=== PATIENT | female | born 1965 | race Caucasian/White ===

== ENCOUNTER → 2024-05-13 12:21 | Outpatient (REF) | payer OTHER, SELFPAY | LOC: WDC 12:21 | PROVIDERS: ATTENDING PHYSICIAN Internal Medicine | DX: Z12.31 Encounter for screening mammogram for malignant neoplasm of breast (principal) | CPT/HCPCS: 77063; 77067 ==

== ENCOUNTER → 2024-05-21 12:53 | Outpatient (REF) | payer SELFPAY | LOC: RAD 12:53 | PROVIDERS: ATTENDING PHYSICIAN Internal Medicine Critical Care Medicine; FAMILY PHYSICIAN Internal Medicine | DX: I25.10 Atherosclerotic heart disease of native coronary artery without angina pectoris (principal); F17.210 Nicotine dependence, cigarettes, uncomplicated | CPT/HCPCS: 71271; 75571 ==

== ENCOUNTER 2024-07-20 11:45 | Emergency (ER) | payer OTHER, SELFPAY ==
[2024-07-20 11:49] VITALS: BP 145/98
--- NOTE | 2024-07-20 12:27 | ED.GENMED ---
History of Present Illness
General
Chief Complaint: Back Pain
Source: patient
Exam Limitations: none
Time Seen by Provider: 07/20/24 12:26
Nursing documentation reviewed up to this point in time: agreed with
History of Present Illness
History of Present Illness:
59-year-old female with history of headaches, HLD, IBS, anxiety, chronic pain neck and upper back (followed by pain management, cervical injections by Dr. Cunningham 3 weeks ago), 'never in my lower back like it is now,' chronic fatigue, presents
stating 9 days ago developed a little pain across her lower back 'I though I pulled my back.'
8, 7 and 6 days ago pain was severe, stabbing and radiating around to both groin areas. Up all night crying in pain. She felt she had to push on her lower abdomen to get her urine out. Advil and Tylenol did not help.
Went to 6 days ago, told there was blood in her urine, started on Amoxicillin 500 mg BID x 5 days for UTI (culture pending) which she finished yesterday. Also given Medrol dose pack for her back pain. Pain has not improved. She feels bloated.
As of today she states she is only '20% better' and as she is weaning off the steroid she feels symptoms getting worse again.
Denies fever/chills, n/v/d/c. Denies saddle numbness, weakness in legs. Abdomen feels bloated. She feels 'exhausted.'
Past History
Past History
ED Past Medical History: Other (Chronic pain)
ED Past Surgical History: None
Social History
Tobacco: Non-smoker
Alcohol: None
Drug: None
Personal:
Living: with family
Family History
Family History: Unable to obtain
Review of Systems
Review of Systems
Allergies reviewed?: Yes
All Other Systems: ROS reviewed and negative except as documented in HPI and ROS
Constitutional: Reports fatigue; Denies fever
EENT: Denies sore throat
Respiratory: Denies trouble breathing
Cardiac: Denies chest pain
ABD/GI: Reports abdominal pain and nausea; Denies vomiting or diarrhea
: Denies dysuria, frequency or incontinence
Musculoskeletal: Reports neck pain (chronic) and back pain (across lower back radiating to both groin areas and hips); Denies edema
Skin: Reports no symptoms
Neurological: Denies headache, weakness or numbness
Phy Exam
Physical Exam
Physical Exam:
GENERAL: No acute distress. A&Ox3.
CONSTITUTIONAL: Afebrile.
EYES: clear, conjunctivae normal
ENMT: moist mucus membranes, Pharynx nl
RESPIRATORY: Regular respirations, nonlabored, lungs clear.
CARDIOVASCULAR: Regular rate and rhythm, no murmurs, no rubs.
GI: Soft, tender across lower abdomen, more mid to left. Nondistended, normal BS
MUSCULOSKELETAL: Pt gets off and on the stretcher with ease. Tender to palpation across lower back. Twisting side to side and forward flexion aggravates the low back pain. Both hips Moves with ease. Well perfused.
SKIN: Warm, dry, pink
PSYCH: Normal mood and affect. Well kept, interactive and appropriate
NEUROLOGIC: Awake, alert and oriented. No focal neurological deficits
Course
Orders/Labs/Results
Orders:
Orders
07/20/24 12:53
0.9% Sodium Chloride 1000 ml [Nss] 1,000 ml IV BOLUS
Ketorolac [Toradol] 15 mg IV NOW STA
07/20/24 12:54
CT Abd/pel W Iv And Oral Contr Urgent
Comment:
Reason For Exam: pain mid to lower abdomen, groins, low back
Iohexol [Omnipaque] See Protocol PO NOW STA
07/20/24 13:22
C-Reactive Protein Urgent
Comment: ADD ON
Complete Blood Count/With Diff Urgent
Comprehensive Metabolic Panel Urgent
Erythrocyte Sed Rate Urgent
Comment: ADD ON
Lipase Urgent
Urinalysis Reflex To Culture Urgent
Date Specimen was Collected: 07/20/24
Time Specimen was Collected: 13:04
Urine Microscopic Reflex Cult Urgent
07/20/24 13:29
Hydrocortisone Sod Succinate [Solu-Cortef] 200 mg IV NOW STA
07/20/24 14:00
Diphenhydramine [Benadryl] 50 mg IV NOW
07/20/24 14:03
Add On- LAB Urgent
Tests Added?: CRP, Sed rate
Abnormal Lab Results
07/20/24
13:22
MCH 32.8 H pg
(27.0-31.0)
MPV 11.5 H fL
(7.4-10.4)
Absolute Monos (auto) 0.7 H 10^3/uL
(0.1-0.6)
Creatinine 0.5 L mg/dL
(0.6-1.0)
ALT 39 H U/L
(0-35)
Total Protein 6.1 L g/dl
(6.3-8.2)
Leukocyte Esterase Rfl Trace A
(Negative)
Urine Bacteria (Reflex) Few A
(Negative)
07/20/24 13:22
07/20/24 13:22
Vital Signs
Initial and Last Documented VS:
Initial Vital Signs
Temp Pulse Resp BP Pulse Ox
98.9 F 98 18 145/98 99
07/20/24 11:49 07/20/24 11:49 07/20/24 11:49 07/20/24 11:49 07/20/24 11:49
Last Documented Vital Signs
Temp Pulse Resp BP Pulse Ox
98.5 F 55 18 146/89 95
07/20/24 16:18 07/20/24 16:18 07/20/24 11:49 07/20/24 16:18 07/20/24 16:18
MDM/Problems Addressed
Differential Diagnosis Includes:
low back strain, kidney stone, pyelonephritis
Cystitis, UTI, diverticulitis, colitis
Musculoskeletal pain, fibromyalgia
MDM/Problems Addressed:
59-year-old female with history of headaches, HLD, IBS, anxiety, chronic pain neck and upper back (followed by pain management, cervical injections by Dr. Cunningham 3 weeks ago), 'never in my lower back like it is now,' chronic fatigue, presents
stating 9 days ago developed a little pain across her lower back 'I though I pulled my back.'
8, 7 and 6 days ago pain was severe, stabbing and radiating around to both groin areas. Up all night crying in pain. She felt she had to push on her lower abdomen to get her urine out. Advil and Tylenol did not help.
Went to 6 days ago, told there was blood in her urine, started on Amoxicillin 500 mg BID x 5 days for UTI (culture pending) which she finished yesterday. Also given Medrol dose pack for her back pain. Pain has not improved. She feels bloated.
As of today she states she is only '20% better' and as she is weaning off the steroid she feels symptoms getting worse again.
Denies fever/chills, n/v/d/c. Denies saddle numbness, weakness in legs. Abdomen feels bloated. She feels 'exhausted.'
Afebrile, NAD
CBC normal
CMP normal
Urinalysis negative
4:[address]d/pelvis with IV and po contrast radiology report read: IMPRESSION:
1. No acute intra-abdominal process identified.
2. Large volume of stool in the proximal and transverse colon, moderate volume in the descending colon.
3. Degenerative disc disease most pronounced at L5-S1 and L2-L3.
Copy of report given to pt. All questions answered.
Inflammatory markers are normal
Pt has Flexeril at home, she takes Xanax 0.25 mg and Benadryl 50 mg HS so she hasn't been using the Flexeril
Treat constipation
F/U with spine/pain management if back pain persists.
REferred to GI, encouraged her to get a colonoscopy
At discharge, pt ambulated out with normal gait.
*Critical Care Note
Total Time (30-74mins, 75-104mins- exclusive of procedures): Not Applicable
ED Attending Note
-
Portions of this chart may have been created with voice recognition software.� Occasional wrong word or��sound alike� substitutions may have occurred due to the inherent limitations of voice recognition software.
Discharge Plan
Departure
Patient Disposition: Home (Routine Discharge)
Date of Disposition: 07/20/24
Time of Disposition: 16:34
Patient with high blood pressure during this ER visit?: No
Condition: Good
Discharge Problem:
Abdominal pain, Low back pain, Constipation
Instructions: Low Back Pain (DC), Abdominal Pain, Adult ED, Constipation, Adult ED
Prescriptions:
No Action
paroxetine HCl 10 MG tablet
10 mg PO DAILY
prednisone 5 MG tablet
20 mg PO DAILY
Patient Comments:
Patient states that she is taking a tapering dose pack for a shoulder injury. Pt states that tabs are 5mg and she started with 30mgx6, then 25mgx6, states that yesterday was day 2 of 6 at 20mg.
alprazolam 0.25 MG tablet
0.5 tab PO DAILY
ondansetron 4 MG tablet,disintegrating
4 mg PO TIDPRN PRN (Reason: nausea/vomiting) Qty: 10 0RF
ondansetron 4 MG tablet,disintegrating
4 mg PO TIDPRN PRN (Reason: nausea/vomiting) Qty: 12 0RF
Referrals:
Pablito Cunningham MD [Active] - Next open appointment
Lorena Lr DO [Active] - Next open appointment
Tonya,Maira A., [employer] [Family Provider] - As needed
Activity Restrictions/Additional Instructions:
As we discussed, Your CT scan shows nothing worrisome. It looks like you have a moderate amount of stool throughout your colon, consistent with constipation
Your urine shows no infection.
try the Flexeril 10 mg with Ibuprofen 600 mg during the day when you can rest and you don't have to drive to see if it helps your low back pain.
Follow up with Dr. Cunningham if your back pain persists beyond another week with the above medications and rest.
Follow up with the GI doctor for your bowel issues.
Interventions
Interventions:
ED- Fall Risk Assessment Last Done: 07/20/24 13:45
*Nursing Disposition Last Done: 07/20/24 16:57
ED-Musculoskeletal Assessment Last Done: 07/20/24 13:45
Discharge Date and Time
Print Language: ROMANIAN
[2024-07-20] MEDS: OMNIPAQUE 50 ML PO (13:18)
[2024-07-20] MEDS: TORADOL 15 MG IV (13:19)
[2024-07-20] MEDS: NSS 1000 IV (13:21)
[2024-07-20 13:34] LABS: % Basophils 0.7 % (0-2); % Eosinophils 1.1 % (0-6); % Immature Granulocytes 0.4 % (0-0.5); % Lymphocytes 34.4 % (20.5-51.1); % Monocytes 8.4 % (1.7-9.3); Absolute Basophils 0.1 10^3/uL (0-0.2); Absolute Eosinophils 0.1 10^3/uL (0-0.7); Absolute Lymphocytes 2.8 10^3/uL (1.2-3.4); Absolute Monocytes 0.7 10^3/uL (0.1-0.6); Absolute Neutrophils 4.5 10^3/uL (1.4-6.5); Hemoglobin 14.7 g/dL (12.0-16.0); Mean Corpuscular Hgb 32.8 pg (27.0-31.0); Mean Corpuscular Volume 93.8 fL (81.0-99.0); Mean Platelet Volume 11.5 fL (7.4-10.4); Nucleated Red Blood Cells % 0 %; Platelet Count 178 10^3/uL (130-400); Red Blood Cell Count 4.48 10^6/uL (4.20-5.40); Red Cell Dist. Width 12.2 % (11.5-14.5); White Blood Cell Count 8.1 10^3/uL (4.8-10.8)
[2024-07-20] MEDS: SOLU-CORTEF 200 MG IV (13:34)
[2024-07-20 13:38] LABS: Urine Albumin Negative (Neg - Trace); Urine Bilirubin Negative (Negative); Urine Character Clear (Clear); Urine Color Yellow; Urine Glucose Negative (Negative); Urine Ketone Negative (Negative); Urine Leukocyte Trace (Negative); Urine Nitrite Negative (Negative); Urine Occult Blood Negative (Negative); Urine Specific Gravity 1.005 (<1.030); Urine Urobilinogen Negative (Neg - 1+)
[2024-07-20 13:49] LABS: ALT (SGPT) 39 U/L (0-35); AST (SGOT) 30 U/L (14-36); Albumin 4.2 g/dl (3.5-5.0); Alkaline Phosphatase 53 U/L (38-126); Blood Urea Nitrogen 10 mg/dl (7-17); Carbon Dioxide 30 mmol/L (22-30); Chloride 101 mmol/L (98-107); Glucose 92 mg/dl (70-99); Lipase 97 U/L (23-300); Potassium 4.2 mmol/L (3.5-5.1); Sodium 140 mmol/L (135-145); Total Bilirubin 0.4 mg/dl (0.2-1.3); Total Protein 6.1 g/dl (6.3-8.2); eGFR > 60.00
[2024-07-20 14:23] LABS: Urine Bacteria Few (Negative); Urine Red Blood Cell 0-2 /HPF (0-2); Urine White Cell 0-2 /HPF (0-5)
[2024-07-20 15:08] LABS: Erythrocyte Sed Rate 6 mm/hour (0-20)
[2024-07-20] MEDS: BENADRYL 50 MG IV (15:13)
[2024-07-20 16:18] VITALS: BP 146/89
[2024-07-20 16:45] LABS: C-Reactive Protein < 5.00 mg/L (0.0-10.00)
== END 2024-07-20 16:57 | disposition home or self-care (01) ==
LOC: EMR 11:45
PROVIDERS: Registered Nurse; EMERGENCY PHYSICIAN Student in an Organized Health Care Education/Training Program; FAMILY PHYSICIAN Internal Medicine
DX: R10.9 Unspecified abdominal pain (principal); M54.50 Low back pain, unspecified; K59.00 Constipation, unspecified; G89.29 Other chronic pain; E78.00 Pure hypercholesterolemia, unspecified; K58.9 Irritable bowel syndrome, unspecified; F41.9 Anxiety disorder, unspecified
CPT/HCPCS: 99284; 96374; 96375; 96361; 74177; 80053; 81003; 81015; 83690; 85025; 85652; 86140; Q9967

== ENCOUNTER → 2024-07-23 12:48 | Outpatient (REF) | payer OTHER, SELFPAY | LOC: RAD 12:48 | PROVIDERS: ATTENDING PHYSICIAN Physician Assistant Surgical; FAMILY PHYSICIAN Psychiatry & Neurology Neurology; REFERRING PHYSICIAN Internal Medicine | DX: M25.551 Pain in right hip (principal) | CPT/HCPCS: 73523 ==

== ENCOUNTER → 2024-09-01 15:08 | Outpatient (REF) | payer OTHER, SELFPAY | LOC: PAVMRI 15:08 | PROVIDERS: ATTENDING PHYSICIAN Physician Assistant Surgical; FAMILY PHYSICIAN Internal Medicine | DX: M54.16 Radiculopathy, lumbar region (principal) | CPT/HCPCS: 72148 ==

== ENCOUNTER → 2025-07-23 12:05 | Outpatient (REF) | payer OTHER, SELFPAY | LOC: PAVMRI 12:05 | PROVIDERS: ATTENDING PHYSICIAN Physician Assistant Surgical; FAMILY PHYSICIAN Internal Medicine | DX: M54.12 Radiculopathy, cervical region (principal) | CPT/HCPCS: 72141 ==

== ENCOUNTER → 2025-08-26 13:15 | Outpatient (REF) | payer OTHER, SELFPAY | LOC: RAD 13:15 | PROVIDERS: ATTENDING PHYSICIAN Internal Medicine Critical Care Medicine; FAMILY PHYSICIAN Internal Medicine | DX: F17.210 Nicotine dependence, cigarettes, uncomplicated (principal); R91.8 Other nonspecific abnormal finding of lung field | CPT/HCPCS: 71271 ==

== ENCOUNTER → 2025-10-05 13:02 | Outpatient (REF) | payer OTHER, SELFPAY | LOC: WDC 13:02 | PROVIDERS: ATTENDING PHYSICIAN Internal Medicine | DX: Z12.31 Encounter for screening mammogram for malignant neoplasm of breast (principal); Z78.0 Asymptomatic menopausal state | CPT/HCPCS: 77063; 77067; 77080 ==